=== PATIENT | female | born 1985 | race African-American/Black ===

== ENCOUNTER 2016-12-24 03:04 | Emergency (ER) | payer MEDICAID, OTHER ==
[~2016-12-24] VITALS: Ht 162.6 cm; Wt 86.0 kg
[~2016-12-24 03:04] MED LIST: PREN-88 PO
[2016-12-24 05:45] VITALS: BP 129/73
== END 2016-12-24 06:02 | disposition home or self-care (01) ==
LOC: ER 03:25
DX: M77.9 Enthesopathy, unspecified (principal); Z90.49 Acquired absence of other specified parts of digestive tract
CPT/HCPCS: 29125; 73130; 81025; 99284

== ENCOUNTER 2017-04-15 22:32 | Emergency (ER) | payer MEDICAID ==
[~2017-04-15] VITALS: Ht 160 cm; Wt 96.0 kg
[2017-04-16] MEDS ORDERED: MAGNESIUM/ALUMINUM HYDROXIDE/SIMETHICONE 30ML UDC PO STA (00:20)
[2017-04-16] MEDS ORDERED: ACETAMINOPHEN 325MG TABLET PO STA (00:20)
[2017-04-16] MEDS ORDERED: ONDANSETRON 4MG ODT PO STA (00:20)
[2017-04-16 00:36] LABS: BASOPHILS % 0.7 % (0.0-2.0); EOSINOPHILS % 1.3 % (0.0-5.0); HEMATOCRIT. 38.9 % (36.0-48.0); HEMOGLOBIN. 13.5 g/dL (12.0-16.0); LYMPHOCYTES % 39.5 % (20.0-50.0); MEAN CORPUSCULAR HEMOGLOBIN 29.8 pg (28.0-32.0); MEAN CORPUSCULAR VOLUME 85.6 fL (81.0-99.0); MEAN PLATELET VOLUME 8.7 fl (7.4-10.4); MONOCYTES % 10.1 % (2.0-8.0); NEUTROPHILS % 48.4 % (40.0-76.0); PLATELET 301 x1000/uL (130-400); RED BLOOD CELL COUNT 4.54 mill/uL (4.2-5.4); RED CELL DISTRIBUTION WIDTH 12.2 % (11.6-14.6)
[2017-04-16 00:42] LABS: PROTHROMBIN TIME 10.1 sec
[2017-04-16 00:43] LABS: CHLORIDE 101 mEq/L (98-107)
[2017-04-16 00:51] LABS: CARBON DIOXIDE 31 mEq/L (21-32)
[2017-04-16 01:12] LABS: CLARITY URINE CLEAR (CLEAR); COLOR URINE YELLOW (YELLOW); GLUCOSE URINE NEGATIVE (NEGATIVE); KETONES URINE NEGATIVE (NEGATIVE); LEUKOCYTE ESTERASE URINE NEGATIVE (NEGATIVE); NITRITE URINE NEGATIVE (NEGATIVE); OCCULT BLOOD URINE TRACE (NEGATIVE); PROTEIN URINE NEGATIVE (NEGATIVE); SPECIFIC GRAVITY URINE 1.024 (1.005-1.030)
[2017-04-16 01:30] LABS: *AMPHETAMINES SCREEN URINE NEGATIVE (NEGATIVE); *BARBITURATES SCREEN URINE NEGATIVE (NEGATIVE); *BENZODIAZEPINES SCREEN URINE NEGATIVE (NEGATIVE); *COCAINE SCREEN URINE NEGATIVE (NEGATIVE); CANNABINOID URINE SCREEN NEGATIVE (NEGATIVE); METHADONE URINE SCREEN NEGATIVE (NEGATIVE); OPIATES URINE SCREEN NEGATIVE (NEGATIVE); PHENCYCLIDINE URINE SCREEN NEGATIVE (NEGATIVE)
[2017-04-16 02:16] VITALS: BP 110/56
== END 2017-04-16 02:16 | disposition home or self-care (01) ==
LOC: ER 22:32
DX: R10.9 Unspecified abdominal pain (principal); Z90.49 Acquired absence of other specified parts of digestive tract
CPT/HCPCS: 36415; 80053; 80305; 81001; 81025; 83690; 85025; 85610; 99284; Q0162; Z7610

== ENCOUNTER 2017-08-03 02:28 | Emergency (ER) | payer MEDICAID ==
[~2017-08-03] VITALS: Ht 162.6 cm; Wt 82.0 kg
[2017-08-03] MEDS ORDERED: IBUPROFEN 600MG TABLET PO ONE (04:00)
[2017-08-03 05:00] VITALS: BP 115/67
== END 2017-08-03 05:15 | disposition home or self-care (01) ==
LOC: ER 02:28
DX: M72.2 Plantar fascial fibromatosis (principal); Z90.49 Acquired absence of other specified parts of digestive tract
CPT/HCPCS: 73630; 81025; 99284

== ENCOUNTER 2020-10-30 11:19 | Emergency (ER) | payer MEDICAID, OTHER ==
[~2020-10-30] VITALS: Ht 162.6 cm; Wt 82.0 kg
[2020-10-30 13:02] VITALS: BP 129/75
== END 2020-10-30 14:21 | disposition home or self-care (01) ==
LOC: ER 11:19
DX: M25.531 Pain in right wrist (principal); Z91.81 History of falling; J02.9 Acute pharyngitis, unspecified; R03.0 Elevated blood-pressure reading, without diagnosis of hypertension
CPT/HCPCS: 73110; 81025; 99283